=== PATIENT | male | born 1945 | race Caucasian/White ===

== ENCOUNTER → 2023-11-03 | Outpatient (CLI) | payer BC | END | disposition home or self-care (01) | LOC: SHCH 14:37 | PROVIDERS: ATTEND Internal Medicine Cardiovascular Disease | DX: I11.0 Hypertensive heart disease with heart failure (principal); I50.30 Unspecified diastolic (congestive) heart failure; I35.1 Nonrheumatic aortic (valve) insufficiency; I71.21 Aneurysm of the ascending aorta, without rupture | CPT/HCPCS: 93306 ==

== ENCOUNTER 2024-03-06 07:25 | Emergency (ER) | payer BC ==
[~2024-03-06] VITALS: Ht 177.8 cm; Wt 82.1 kg
[2024-03-06 08:21] LABS: HEMATOCRIT 50.4 % (42-54); MEAN CORPUSCULAR HEMOGLOBIN 31.2 pg (27.0-33.0); MEAN CORPUSCULAR HGB CONC 33.5 g/dL (32.0-36.0); MEAN CORPUSCULAR VOLUME 93.2 fL (79-99); PLATELET COUNT (AUTO) 184 K/uL (130-400); RED BLOOD CELL COUNT(AUTO) 5.41 MIL/uL (4.50-6.20); RED CELL DISTRIBUTION WIDTH 12.6 % (11.0-15.5); WHITE BLOOD COUNT (AUTO) 4.4 K/uL (4.8-10.8)
[2024-03-06] MEDS: CEFTRIAXONE 1G VIAL IVPB ONE (08:21)
[2024-03-06] MEDS: 0.9%NACL 1000ML 1,000 ML IV ONE (08:21)
[2024-03-06] MEDS: CARVEDILOL 6.25 MG TABLET PO ONE (08:28)
[2024-03-06 08:38] LABS: CREATININE 1.1 mg/dL (0.5-1.3); POTASSIUM 4.3 mmol/L (3.5-5.1)
[2024-03-06 09:12] LABS: BASOPHILS % (MANUAL) 1 % (0-2); EOSINOPHILS % (MANUAL) 3 % (1-6); LYMPHOCYTES % (MANUAL) 45 % (22-44); MAN.DIFF COMMENT-IMPRESSION MANUAL DIFFERENTIAL; MONOCYTES % (MANUAL) 5 % (2-9); PLATELET MORPHOLOGY COMMENT ADEQUATE; SEGMENTED NEUTROPHILS % 46 % (40-70); TOTAL CELLS COUNTED 100
[2024-03-06 12:03] VITALS: BP 138/89; PULSE 80; RESP 18; O2SAT 99
[2024-03-06 13:39] LABS: ADD UA MICROSCOPIC YES; APPEARANCE,URINE CLEAR (CLEAR); BILIRUBIN,URINE NEGATIVE (NEGATIVE); COLOR,URINE LIGHT-YELLOW (YELLOW); GLUCOSE, URINE (UA) NEGATIVE (NEGATIVE); KETONES,URINE 5 mg/dL (NEGATIVE); LEUKOCYTE ESTERASE ,URINE NEGATIVE Leu/uL (NEGATIVE); NITRATE,URINE NEGATIVE (NEGATIVE); OCCULT BLOOD,URINE NEGATIVE (NEGATIVE); PH,URINE 6.5 (5.0-8.0); PROTEIN,URINE NEGATIVE (NEGATIVE); UROBILINOGEN,URINE 0.2 mg/dL (0.2-1.0)
[2024-03-06 13:43] LABS: RBC,URINE 0-1 /HPF (0-1); SQUAMOUS EPITHELIAL CELL,UR RARE /HPF (0-2)
== END 2024-03-06 12:21 | disposition home or self-care (01) ==
LOC: EDH 07:25
DX: R00.2 Palpitations (principal); I10 Essential (primary) hypertension; E78.5 Hyperlipidemia, unspecified; Z98.890 Other specified postprocedural states
CPT/HCPCS: 99284; 96365; 71045; 84484; 80048; 85025; 87040; 83605 ×2; 81001; 36415; 93005 ×2; J7030; J0696

== ENCOUNTER → 2024-11-08 | Outpatient (CLI) | payer BC ==
--- NOTE | 2024-11-14 10:49 | HMCSR ---
APPROVED REPORT EXAM: Two-dimensional and M-mode echocardiogram with Doppler and color Doppler. INDICATION ICD: I71.21 Aneurysm of the ascending aorta, without rupture 2D Dimensions RVDd4.3 cmLVEF(%)49.0 (>50%)LVED Vol(simp.)123.0 mL IVSd1.3 (0.7-1.1cm)FS(%)25 %LVES Vol(simp.)56.0 mL LVDd4.8 (3.8-5.6cm)Ao Root(2D)4.2 (2.0-3.7cm)LVEF(%, simp.)55 % PWd1.0 (0.7-1.1cm)LVOT diam2.2 (1.8-2.4cm)LA ESV INDEX (BP)32.90 mL/m2 LVDs3.6 (2.5-4.0cm)IVC diam1.3 cm Deformation Strain Apical 4-16.6 % Apical 2-16.7 % Apical 3-15.7 % Global Strain-16.3 % Aortic Valve AoV Vmax1.1 m/Regina Peak GR4.8 mmHgLVOT Vmax1.0 m/s AoV VTI0.2 mAo Mean GR2.9 mmHgLVOT VTI0.22 m LUCY (VMAX)3.2 cm2Al P1/2T858 msAVA (VTI) 3.2 cm2 Mitral Valve MV E Vmax60.6 cm/sDECEL Dclu027 ms MV A Xyvr996.4 cm/sP 1/2 T63 ms E/A ratio0.6MVA (PHT)3.5 cm2 MR Max PG56 mmHg TDI E/E' Yniiwf42.7E/E' Vutrqht84.9 Pulmonary Valve PV Vmax0.9 m/sPV VTI0.19 mPV Mean GR2 mmHg PV Peak GR3.0 mmHgPI End P[place]am. [place] 1.2 cm/s Tricuspid Valve TR Vmax1.9 m/sRAP (EST) 3 kyMuODTS41.5 mmHg TR Peak GR14.5 mmHg Left Ventricle Left ventricular cavity size is normal. There is normal LV segmental wall motion. Normal global strai n There is mild asymmetric left ventricular hypertrophy. Sigmoid septum is present. LVEF is 50-55%. G rade 1 diastolic dysfunction Right Ventricle The right ventricle is mildly dilated. Right ventricular systolic function is borderline reduced. Atria The left atrium size is normal. The right atrium size is normal. Aortic Valve Aortic valve is trileaflet. Aortic valve leaflets are sclerotic but open well. Trace to mild aortic r egurgitation. There is no aortic valvular stenosis. Mitral Valve Mitral valve leaflets are mildly sclerotic but open well. Mitral regurgitation is trace to mild. Ther e is no mitral valve stenosis. Tricuspid Valve The tricuspid valve leaflets appear normal. There is trace tricuspid regurgitation. Pulmonic Valve The pulmonic valve leaflets are thin and pliable; valve motion is normal. There is trace to mild valv ular regurgitation. Great Vessels Aortic root is moderately dilated. Ascending aorta is dilated. The IVC is normal in size and collapse s >50% with inspiration. Pericardium No pericardial effusion. Conclusion There is mild asymmetric left ventricular hypertrophy. Sigmoid septum is present. LVEF is 50-55%. Grade 1 diastolic dysfunction There is normal LV segmental wall motion. Aortic root is moderately dilated. No pericardial effusion.
== END | disposition home or self-care (01) ==
LOC: SHCH 09:49
PROVIDERS: ATTEND Internal Medicine Cardiovascular Disease
DX: I08.8 Other rheumatic multiple valve diseases (principal); I71.21 Aneurysm of the ascending aorta, without rupture
CPT/HCPCS: 93306; 93356

== ENCOUNTER → 2024-11-16 | Outpatient (CLI) | payer BC ==
[2024-11-16 16:18] LABS: BASOPHILS # (AUTO) 0.05 K/uL (0.00-0.20); BASOPHILS % (AUTO) 0.7 % (0.0-5.0); EOSINOPHILS # (AUTO) 0.28 K/uL (0.00-0.70); EOSINOPHILS % (AUTO) 4.1 % (0.0-8.0); HEMATOCRIT 47.6 % (42-54); IMMATURE GRANULOCYTE ABSOLUTE 0.02 K/uL (0-1); LYMPHOCYTES # (AUTO) 2.4 K/uL (1.0-4.8); LYMPHOCYTES % (AUTO) 35.3 % (21.0-51.0); MEAN CORPUSCULAR HEMOGLOBIN 31.1 pg (27.0-33.0); MEAN CORPUSCULAR HGB CONC 33.8 g/dL (32.0-36.0); MEAN CORPUSCULAR VOLUME 91.9 fL (79-99); MONOCYTES % (AUTO) 14.5 % (3.0-13.0); NEUTROPHILS # (AUTO) 3.1 K/uL (1.8-7.7); NEUTROPHILS % (AUTO) 45.1 % (40.0-77.0); PLATELET COUNT (AUTO) 220 K/uL (130-400); RED BLOOD CELL COUNT(AUTO) 5.18 MIL/uL (4.50-6.20); RED CELL DISTRIBUTION WIDTH 12.9 % (11.0-15.5); WHITE BLOOD COUNT (AUTO) 6.8 K/uL (4.8-10.8)
[2024-11-16 16:41] LABS: BILIRUBIN,TOTAL 0.4 mg/dL (0.2-1.0); CREATININE 0.9 mg/dL (0.5-1.3); MAGNESIUM 2.2 mg/dL (1.80-2.40); PHOSPHORUS 3.1 mg/dL (2.5-4.9); POTASSIUM 4.6 mmol/L (3.5-5.1); THYROID STIMULATING HORMONE 2.65 uIU/mL (0.36-3.74); TOTAL PROTEIN, SERUM 7.4 g/dL (6.0-8.3)
== END | disposition home or self-care (01) ==
LOC: LAB 14:28
PROVIDERS: ATTEND Internal Medicine Cardiovascular Disease
DX: I48.0 Paroxysmal atrial fibrillation (principal); I47.10 Supraventricular tachycardia, unspecified; I49.1 Atrial premature depolarization
CPT/HCPCS: 36415; 80053; 83735; 84100; 84443; 85025

== ENCOUNTER 2025-02-02 15:02 | Emergency (ER) | payer BC, MEDICARE ==
[~2025-02-02] VITALS: Ht 177.8 cm; Wt 83.9 kg
[2025-02-02 15:28] LABS: IMMATURE GRANULOCYTE ABSOLUTE 0.01 K/uL (0-1); NUCLEATED RED BLOOD CELLS 0.0 % (0.0-0.19); PLATELET COUNT (AUTO) 199 K/uL (130-400); RED BLOOD CELL COUNT(AUTO) 4.96 MIL/uL (4.50-6.20); RED CELL DISTRIBUTION WIDTH 12.7 % (11.0-15.5); WHITE BLOOD COUNT (AUTO) 6.4 K/uL (4.8-10.8)
[2025-02-02 15:42] LABS: CREATININE 1.0 mg/dL (0.5-1.3); GLOMERULAR FILTR. RATE CALC 78.0 mL/min (>90); GLUCOSE,RANDOM 132.0 mg/dL (70-105); SODIUM SERUM 145.0 mmol/L (136-145); UREA NITROGEN, BLOOD 17.0 mg/dL (7-18)
[2025-02-02 15:47] LABS: CREATINE KINASE, TOTAL 99.0 U/L (21-232)
--- NOTE | 2025-02-02 16:07 | EKG ---
[facility] Test Date: 2025-02-02 Test Time: 15:04:45 Pat Name: CLAIRE MACIAS Department: ED Room: Gender: M Manager Research: [id number] Requested By: NOE MILLER Order Number: [id number] Reading MD: Luis Krause Measurements Intervals [place] Rate: 85 P: 0 MD: 0 QRS: 10 QRSD: 150 T: -6 QT: 367 QTc: 437 Interpretive Statements Paroxysmal Atrial fibrillation NSR Right bundle branch block Lateral infarct, age indeterminate Compared to ECG 03/06/2024 11:36:32 Myocardial infarct finding now present Sinus rhythm no longer present Atrial premature complex(es) no longer present Electronically Signed On 02-03-2025 10:52:32 CDT by Luis Krause Please click the below link to view image of tracing.
--- NOTE | 2025-02-02 16:30 | HMCIMG ---
EXAM: CR Chest, 1 View. CLINICAL HISTORY: CHEST PAIN COMPARISON: Radiograph dated March 06, 2024 FINDINGS: LUNGS: There is no mass, infiltrate, or acute pulmonary abnormality. PLEURAL SPACES: No pleural effusion or pneumothorax. MEDIASTINUM: Cardiac size and mediastinal contours within normal limits. BONES: No aggressive appearing osseous lesion seen. IMPRESSION: No acute cardiopulmonary pathology is evident. /[place]
[2025-02-02] MEDS ORDERED: DILT30 PO (17:52)
--- NOTE | 2025-02-02 17:53 | ERN ---
General Chief Complaint: Palpitations Stated Complaint: AFIB Time Seen by MD: 15:16 History of Present Illness Initial Comments 79-year-old male with a history of chronic atrial fibrillation being managed with metoprolol as a monotherapy. He comes in with a racing heart and palpitations. No other symptoms no shortness of breath no chest pain no feelings of lightheadedness. The patient is being treated by Dr. Krause who had started him on 150 mg of metoprolol b.i.d. and the patient could not tolerate that high a dose of a beta estrella. The beta estrella made him tired and sleeping all day. The dosage has been slowly reduced down to where he is now taking 25 mg a day. And then he started to have these heart palpitations today. In the emergency room his heart rate goes anywhere from 90-130, even at rest. Allergies: Coded Allergies: No Known Allergies (Unverified Allergy, Unknown, 03/06/24) Past Medical History Past Medical History: A-Fib, High Cholesterol, Heart Disease, Hypertension Medical History Other: HX OF PROSTATE CA Past Surgical History: Other Surgical History Other: PROSTATE Constitutional: (-) chills, (-) diaphoresis, (-) fever, (-) malaise, (-) weakness, (-) other documentation EENTM: (-) eye pain, (-) blurred vision, (-) tearing, (-) double vision, (-) ear pain, (-) ear discharge, (-) nose pain, (-) nose congestion, (-) throat pain, (-) Throat swelling, (-) mouth pain, (-) tooth pain, (-) mouth swelling, (-) other documentation Respiratory: (-) cough, (-) orthopnea, (-) short of breath, (-) stridor, (-) wheezing, (-) other documentation Cardiovascular: (-) chest pain, (-) edema, (-) palpitations, (-) syncope, (-) dyspnea on exertion, (-) other documentation Physical Exam General Appearance: (+) no apparent distress Orientation: (+) alert, (+) oriented x 3 Head/Face Trauma: No Eye: bilateral eye normal inspection, bilateral eye PERRL, bilateral eye EOMI Ear, Nose, Throat: (+) hearing grossly normal, (+) normal ENT inspection Neck: (+) normal inspection, (+) supple Respiratory: (+) chest non-tender Heart: (+) irregular, (+) tachycardia Vascular: (+) no edema Results Laboratory and Microbiology Lab and Micro Result Laboratory Tests Test 02/02/25 15:21 White Blood Count 6.4 K/uL (4.8-10.8) Red Blood Count 4.96 MIL/uL (4.50-6.20) Hemoglobin 15.7 g/dL (14.0-18.0) Hematocrit 45.2 % (42-54) Mean Corpuscular Volume 91.1 fL (79-99) Mean Corpuscular Hemoglobin 31.7 pg (27.0-33.0) Mean Corpuscular Hemoglobin Concent 34.7 g/dL (32.0-36.0) Red Cell Distribution Width 12.7 % (11.0-15.5) Platelet Count 199 K/uL (130-400) Mean Platelet Volume 9.3 fL (7.5-10.5) Immature Granulocyte % (Auto) 0.2 % (0-1) Neutrophils (%) (Auto) 56.7 % (40.0-77.0) Lymphocytes (%) (Auto) 26.6 % (21.0-51.0) Monocytes (%) (Auto) 13.2 % (3.0-13.0) H Eosinophils (%) (Auto) 2.8 % (0.0-8.0) Basophils (%) (Auto) 0.5 % (0.0-5.0) Neutrophils # (Auto) 3.7 K/uL (1.8-7.7) Lymphocytes # (Auto) 1.7 K/uL (1.0-4.8) Monocytes # (Auto) 0.9 K/uL (0.1-1.0) Eosinophils # (Auto) 0.18 K/uL (0.00-0.70) Basophils # (Auto) 0.03 K/uL (0.00-0.20) Absolute Immature Granulocyte (auto 0.01 K/uL (0-1) Nucleated Red Blood Cells 0.0 % (0.0-0.19) Sodium Level 145 mmol/L (136-145) Potassium Level 4.9 mmol/L (3.5-5.1) Chloride Level 108 mmol/L (101-111) Carbon Dioxide Level 29 mmol/L (21-32) Blood Urea Nitrogen 17 mg/dL (7-18) Creatinine 1.0 mg/dL (0.5-1.3) Glomerular Filtration Rate Calc 78 mL/min (>90) Random Glucose 132 mg/dL (70-105) H Total Calcium 8.9 mg/dL (8.5-10.1) Magnesium Level 2.00 mg/dL (1.80-2.40) Total Creatine Kinase 99 U/L (21-232) Troponin I High Sensitivity 16 ng/L (4-75) MDM I suspect the patient needs to have additional rate control besides the beta estrella. We obtained EKG which showed normal sinus rhythm. We did a chest x- ray which showed no fluid no cardiomegaly no signs of CHF. We obtained electrolytes which showed normal potassium and a normal magnesium. Obtained a CBC which showed no infection. I have called the patient's risk engineer who is Dr. Krause who is on-call today. In the meantime I will give the patient a single dose 30 mg p.o. diltiazem. And discharge him home on that dose. ED Course Orders Procedure Category Date Status Time Vital Signs Per CPOE 02/02/25 Transmitted Routine 15:07 Chest 1vw RAD 02/02/25 Resulted 15:07 12 Lead Ekg Tracing- EKG 02/02/25 Complete Technical 15:07 Oxygen By Nc/Pulse Ox CPOE 02/02/25 Transmitted 15:07 Maintain Iv CPOE 02/02/25 Transmitted 15:07 Iv Insertion CPOE 02/02/25 Transmitted 15:07 Cardiac Monitoring CPOE 02/02/25 Transmitted 15:07 Pulse Oximetry With CPOE 02/02/25 Transmitted Vs And Prn 15:07 Cbc With Differential LAB 02/02/25 Complete 15:07 Activity: Br W/Brp CPOE 02/02/25 Transmitted With Assist 15:07 Creatine Kinase, Total LAB 02/02/25 Complete 15:07 Troponin I High LAB 02/02/25 Complete Sensitivity 15:07 Basic Metabolic Panel LAB 02/02/25 Complete 15:07 Magnesium LAB 02/02/25 Complete 16:02 Diltiazem 60mg Tab PHA 02/02/25 Logged (Cardizem 60mg Tab) 18:00 Vital Signs Date Time Temp Pulse Resp B/P (MAP) Pulse Ox O2 Delivery O2 Flow Rate FiO2 02/02/25 16:55 97.9 81 14 117/80 96 Room Air* 0 21 02/02/25 15:41 97.9 86 18 132/75 96 Room Air* 0 21 02/02/25 15:04 98.1 57 16 145/69 97 Room Air 0 DX & DISP Disposition: Discharge Departure Impression: Primary Impression: Palpitations Condition: Stable Scripts Diltiazem HCl (Diltiazem HCl 30 mg Tab) 30 Mg Tab 1 TAB PO BID for 30 Days, #60 TAB 0 Refills Prov: JENNIE SALDANA MD 02/02/25 Referrals: MED LEVY (PCP) I have given you an additional medication to help slow down the rate of your heart. Please contact your risk engineer and see him as early as possible in this coming week so that he can make further adjustments to your medications to find a good balance between rate control and hypotension. JENNIE SALDANA MD Feb 02, 2025 17:53
[2025-02-02 18:09] VITALS: BP 119/74; PULSE 69; RESP 14; TEMP 97.9; O2SAT 97
--- NOTE | 2025-02-02 18:11 | NUR ---
PT AAOX4 STABLE NO DISTRESS, PT GIVEN RX IN HAND WILL FILL AT HIS PHARMACY TONIGHT AND START NEW MEDICATION PT VITALS WNL, PT DRIVEN HOME BY , NO IV AT THIS TIME.
== END 2025-02-02 18:13 | disposition home or self-care (01) ==
LOC: EDH 15:02
DX: R00.2 Palpitations (principal); I48.91 Unspecified atrial fibrillation; E78.00 Pure hypercholesterolemia, unspecified; I11.9 Hypertensive heart disease without heart failure
CPT/HCPCS: 36415; 71045; 80048; 82550; 83735; 84484; 85025; 93005; 99284

== ENCOUNTER → 2025-03-19 | Outpatient (CLI) | payer BC ==
[~2025-03-19] MED LIST: DILT30 PO
--- NOTE | 2025-03-20 06:16 | HMCIMG ---
EXAM: CR Abdomen, 4 views. CLINICAL HISTORY: Diarrhea. COMPARISON: None provided. FINDINGS: Nonobstructed nonspecific bowel gas pattern. A component of mild to moderate constipation is present in the colon. No free air is evident. No abnormal calcification. Metallic beads overlie the prostate. No aggressive appearing osseous lesion. Mild osteopenia. Degenerative changes. IMPRESSION: No acute process. Nonobstructed nonspecific bowel gas pattern. A component of mild to moderate constipation is present in the colon. /[place]
== END | disposition home or self-care (01) ==
LOC: RAH 08:31
PROVIDERS: ATTEND Internal Medicine Gastroenterology
DX: K59.00 Constipation, unspecified (principal); M85.88 Other specified disorders of bone density and structure, other site; M47.816 Spondylosis without myelopathy or radiculopathy, lumbar region; R19.7 Diarrhea, unspecified
CPT/HCPCS: 74021